=== PATIENT | male | born 1995 | race Caucasian/White ===

== ENCOUNTER 2024-02-05 16:35 | Outpatient (REF) | payer MEDICAID, SELFPAY ==
[2024-02-05 21:58] LABS: ALT 29 U/L (16-63); AST 18 U/L (15-37); Albumin 3.9 g/dL (3.4-5.0); Alkaline Phosphatase 92 U/L (46-116); Bilirubin, Direct 0.1 mg/dL (0.0-0.2); Bilirubin, Total 0.3 mg/dL (0.2-1.0); Total Protein 6.6 g/dL (6.4-8.2)
[2024-02-06 18:56] LABS: HIV-1/2 Ag & Ab Screen Negative (Negative)
== END 2024-02-05 16:36 | disposition home or self-care (01) ==
LOC: NCHCN 16:35
PROVIDERS: Visit Provider Family Medicine
DX: F11.20 Opioid dependence, uncomplicated (principal); Z11.4 Encounter for screening for human immunodeficiency virus [HIV]
CPT/HCPCS: 80076; 86706; 86803; 87389